=== PATIENT | male | born 1970 | race Caucasian/White ===

== ENCOUNTER 2023-10-16 09:24 | Outpatient (CLI) | payer OTHER, SELFPAY | END 2023-10-16 09:25 | disposition home or self-care (01) | PROVIDERS: PCP Family Medicine; Visit Provider Family Medicine | DX: M25.562 Pain in left knee (principal); M25.561 Pain in right knee; M25.551 Pain in right hip; M25.552 Pain in left hip | CPT/HCPCS: 85025; 86039; 86140; 86431 ==

== ENCOUNTER 2024-03-17 15:41 | Outpatient (CLI) | payer OTHER, SELFPAY | END 2024-03-17 15:42 | disposition home or self-care (01) | PROVIDERS: PCP Family Medicine; Visit Provider Family Medicine | DX: E78.5 Hyperlipidemia, unspecified (principal) | CPT/HCPCS: 80061; 84460 ==

== ENCOUNTER 2024-03-26 14:27 | Outpatient (CLI) | payer OTHER, SELFPAY | END 2024-03-26 14:28 | disposition home or self-care (01) | LOC: RAD 14:28 | PROVIDERS: PCP Family Medicine; Visit Provider Family Medicine | DX: R00.2 Palpitations (principal) | CPT/HCPCS: 93306 ==

== ENCOUNTER 2024-04-17 14:44 | Outpatient (CLI) | payer OTHER, SELFPAY | END 2024-04-17 14:45 | disposition home or self-care (01) | LOC: CT 14:44 | PROVIDERS: PCP Family Medicine; Visit Provider Family Medicine | DX: R93.1 Abnormal findings on diagnostic imaging of heart and coronary circulation (principal); I77.819 Aortic ectasia, unspecified site | CPT/HCPCS: 71275; 74174; Q9967 ==

== ENCOUNTER 2024-12-31 07:04 | Outpatient (CLI) | payer OTHER, SELFPAY | END 2024-12-31 07:05 | disposition home or self-care (01) | LOC: INJ CL 07:05 | PROVIDERS: PCP Family Medicine; Visit Provider Nurse Anesthetist, Certified Registered | DX: M54.16 Radiculopathy, lumbar region (principal) | CPT/HCPCS: 62323; J0665; J1100; Q9966 ==